=== PATIENT | female | born 1980 | race Caucasian/White ===

== ENCOUNTER 2019-02-11 12:12 | Emergency (ER) | payer OTHER ==
[~2019-02-11] VITALS: Ht 170.2 cm; Wt 127.0 kg
[2019-02-11 12:22] VITALS: BP_SYST 124
[2019-02-11 12:32] VITALS: BP_SYST 122
== END 2019-02-11 12:26 | disposition home or self-care (01) ==
LOC: SED 12:12
DX: B86 Scabies (principal)
CPT/HCPCS: 99282